=== PATIENT | female | born 1950 | race Caucasian/White ===

== ENCOUNTER 2016-06-24 17:01 | Emergency (ER) | payer MEDICARE, OTHER ==
[2016-06-24 17:22] LABS: BASOPHIL 0.6 % (0-2); EOSINOPHIL 4.6 % (0-7); HCT 46.6 % (37.0-47.0); HGB 15.8 g/dl (12.5-16.0); LYMPHOCYTE 32.2 % (15-48); MCH 31.5 pg (25.0-31.0); MCHC 33.9 g/dL (32.0-36.0); MCV 92.8 fL (78.0-100.0); MONOCYTE 6.6 % (0-12); MPV 11.4 fL (6.0-9.5); PLT 244 K/uL (150-400); RBC 5.02 M/uL (4.20-5.40); RDW 13.7 % (11.5-14.0); WBC 9.8 K/uL (4.0-10.5)
[2016-06-24 17:32] LABS: INR 0.96 (0.9-1.2); PROTHROMBIN TIME 12.4 SECONDS (11.7-14.0); PTT 26.1 SECONDS (23.2-31.4)
[2016-06-24 17:33] LABS: D-DIMER 0.41 ug/mLFEU (0.00-0.41)
[2016-06-24 17:36] LABS: LACTIC ACID 1.3 mmol/L (0.5-2.2)
[2016-06-24 17:38] LABS: ALBUMIN 4.3 g/dL (3.4-4.8); BILIRUBIN - TOTAL 0.6 mg/dL (0.1-1.0); CREATININE 0.9 mg/dL (0.5-1.0); GLOBULIN (CALCULATION) 3.5 g/dL (2.2-4.2); MAGNESIUM 2.06 mg/dL (1.40-2.10); POTASSIUM 3.7 mmol/L (3.5-5.1); TOTAL PROTEIN 7.8 g/dL (6.4-8.3)
[2016-06-24 17:41] LABS: CKMB 2.25 ng/mL (0.97-4.94); MYOGLOBIN 53 ng/mL (26-65); PRO-BNP 227 pg/mL (0-125); TROPONIN T < 0.010 ng/mL
== END 2016-06-24 20:47 | disposition home or self-care (01) ==
LOC: FER 17:01
PROVIDERS: Internal Medicine
DX: R07.89 Other chest pain (principal); I10 Essential (primary) hypertension; I25.10 Atherosclerotic heart disease of native coronary artery without angina pectoris; E03.9 Hypothyroidism, unspecified; F17.200 Nicotine dependence, unspecified, uncomplicated; Z88.5 Allergy status to narcotic agent; Z88.8 Allergy status to other drugs, medicaments and biological substances; Z95.5 Presence of coronary angioplasty implant and graft; Z79.899 Other long term (current) drug therapy
CPT/HCPCS: 36415; 71010; 80053; 82550; 82553; 83605; 83735; 83874; 83880; 84484; 85025; 85379; 85610; 85730; 87040; 93005; J1885; J2175; J2405